=== PATIENT | female | born 1935 | race Caucasian/White ===

== ENCOUNTER → 2023-11-12 12:30 | Outpatient (REF) | payer MEDICARE, SELFPAY ==
[2023-11-12 19:40] LABS: Urine Albumin Negative (Neg - Trace); Urine Bilirubin Negative (Negative); Urine Character Slightly Cloudy (Clear); Urine Color Yellow; Urine Glucose Negative (Negative); Urine Ketone Negative (Negative); Urine Leukocyte 2+ (Negative); Urine Nitrite Positive (Negative); Urine Occult Blood Negative (Negative); Urine Specific Gravity 1.015 (<1.030); Urine Urobilinogen Negative (Neg - 1+)
[2023-11-12 19:54] LABS: Urine Red Blood Cell 0-2 /HPF (0-2)
[2023-11-12 19:55] LABS: Urine Bacteria Many (Negative); Urine White Cell 30-40 /HPF (0-5)
== END ==
LOC: OLABBH 12:30
PROVIDERS: ATTENDING PHYSICIAN Family Medicine
DX: R30.0 Dysuria (principal)
CPT/HCPCS: 81003; 81015; 87086; 87088; 87186

== ENCOUNTER 2024-04-04 07:30 | Emergency (ER) | payer MEDICARE, SELFPAY ==
[2024-04-04 07:35] VITALS: BP 196/84
[2024-04-04 07:41] VITALS: BP 196/84
[2024-04-04 07:57] LABS: % Basophils 0.4 % (0-2); % Eosinophils 1.1 % (0-6); % Immature Granulocytes 1.1 % (0-0.5); % Lymphocytes 14.4 % (20.5-51.1); % Monocytes 7.7 % (1.7-9.3); % Neutrophils 75.3 % (42.2-75.2); Absolute Basophils 0.1 10^3/uL (0-0.2); Absolute Eosinophils 0.1 10^3/uL (0-0.7); Absolute Immature Granulocytes 0.1 10^3/uL (0-0.05); Absolute Lymphocytes 1.6 10^3/uL (1.2-3.4); Absolute Monocytes 0.9 10^3/uL (0.1-0.6); Absolute Neutrophils 8.5 10^3/uL (1.4-6.5); Hematocrit 37.8 % (37.0-47.0); Hemoglobin 12.8 g/dL (12.0-16.0); Mean Corp Hgb Conc. 33.9 g/dL (33.0-37.0); Mean Corpuscular Hgb 33.3 pg (27.0-31.0); Mean Corpuscular Volume 98.4 fL (81.0-99.0); Mean Platelet Volume 9.5 fL (7.4-10.4); Nucleated Red Blood Cells % 0 %; Platelet Count 269 10^3/uL (130-400); Red Blood Cell Count 3.84 10^6/uL (4.20-5.40); Red Cell Dist. Width 11.9 % (11.5-14.5); White Blood Cell Count 11.3 10^3/uL (4.8-10.8)
[2024-04-04 08:00] VITALS: BP 194/78
--- NOTE | 2024-04-04 08:00 | ED.GENMED ---
History of Present Illness
General
Chief Complaint: Fall
Source: ambulance crew
Time Seen by Provider: 04/04/24 07:36
History of Present Illness
History of Present Illness:
88-year-old female with past medical history of Parkinson's, dementia, hypertension/hyperlipidemia presenting to the emergency department for evaluation with EMS after she was at her memory care unit and seen at 5 AM in her usual state of health,
checked on at 7 AM and was found to be on the ground. Patient with obvious left-sided head/facial trauma. EMS placed patient in a collar. Patient is unable to give any history which is baseline for her. She is without any specific complaints at
this time.
Past History
Past History
ED Past Medical History: HTN, Hypercholesterolemia and Other (Parkinson's/dementia)
ED Past Surgical History: None
Social History
Tobacco: Non-smoker
Alcohol: None
Drug: None
Personal:
Living: skilled nursing
Review of Systems
Review of Systems
All Other Systems: ROS reviewed and negative except as documented in HPI and ROS
Phy Exam
Physical Exam
Physical Exam:
GENERAL: Alert , in no apparent distress
Head: Left-sided parietal scalp contusion extending into the left periorbital space. No breaks in the skin
EYE: Left periorbital ecchymosis and edema, pupils 4 mm bilateral, pupils equal and reactive
NECK: Supple, cervical collar in place
ENT: mmm.
CARDIAC: Regular rate and rhythm .
LUNGS: Clear breath sounds bilaterally, no acute respiratory distress, no wheezes/rales/rhonchi, mild tenderness over the sternum and right anterior chest wall but no focal bony tenderness or palpable step-offs
ABDOMEN: Soft, without focal tenderness, no r/g, no cvat
NEUROLOGICAL: Alert and only oriented to self
SKIN: Warm and dry, skin intact.
MUSCULOSKELETAL: well perfused. No sign of trauma to the bilateral upper or lower extremity
PSYCH: Normal and appropriate interaction.
Scores
Heart Failure Risk
Heart Failure Risk Score: Not Applicable
Heart Score for Chest Pain Patients
STEMI patient?: Not applicable
Withdrawal Assessment of Alcohol
Withdrawal Assessment Completed?: Not applicable
Course
Orders/Labs/Results
Orders:
Orders
04/04/24 07:38
Electrocardiogram (*1) Urgent
Reason for Study: Other
Other Reason for Exam: fall
EKG- Treatment ONCE
04/04/24 07:40
Complete Blood Count/With Diff Urgent
Comprehensive Metabolic Panel Urgent
04/04/24 07:53
CT Cervical Spine W/o Iv Contr Urgent
Comment:
Reason For Exam: unwitness fall, left sided facial trauma
CT Facial Bones W/o Iv Contras Urgent
Comment:
Reason For Exam: unwitness fall, left sided facial trauma
CT Head W/o Iv Contrast Urgent
Comment:
Reason For Exam: unwitness fall, left sided facial trauma
CR Chest - 2 Views Urgent
Comment:
Reason For Exam: fall, sternal/right anterior chest pain
Abnormal Lab Results
04/04/24
07:40
WBC 11.3 H 10^3/uL
(4.8-10.8)
RBC 3.84 L 10^6/uL
(4.20-5.40)
MCH 33.3 H pg
(27.0-31.0)
Abs Immat Gran (auto) 0.1 H 10^3/uL
(0-0.05)
Absolute Neuts (auto) 8.5 H 10^3/uL
(1.4-6.5)
Absolute Monos (auto) 0.9 H 10^3/uL
(0.1-0.6)
Immature Gran % 1.1 H %
(0-0.5)
Neutrophils % 75.3 H %
(42.2-75.2)
Lymphocytes % 14.4 L %
(20.5-51.1)
BUN 21 H mg/dl
(7-17)
Glucose 102 H mg/dl
(70-99)
04/04/24 07:40
04/04/24 07:40
Vital Signs
Initial and Last Documented VS:
Initial Vital Signs
Pulse Resp BP Pulse Ox
68 21 196/84 96
04/04/24 07:35 04/04/24 07:35 04/04/24 07:35 04/04/24 07:35
Last Documented Vital Signs
Temp Pulse Resp BP Pulse Ox
97.8 F 77 18 182/88 99
04/04/24 07:41 04/04/24 12:00 04/04/24 12:00 04/04/24 12:00 04/04/24 12:00
MDM/Problems Addressed
Differential Diagnosis Includes:
Unwitnessed fall, syncope, intracranial bleeding, facial contusion/fracture, cervical spine injury
MDM/Problems Addressed:
88-year-old female presenting to the emergency department for evaluation following a suspect accidental fall resulting in left-sided facial trauma. Left-sided facial/scalp contusion on exam. Patient also with mild tenderness over the sternum and
right anterior chest wall. She is otherwise in no acute distress, smiling and pleasant. CT of the head, C-spine and facial bones ordered. Chest x-ray ordered. Patient otherwise resting comfortably and in no acute distress.
*Radiology
Radiology exam reviewed: radiology read reviewed
*Pulse Oximetry
Patient hypoxic: no
*EKG
Interpreted by ED Provider?: Yes
Comparison EKG: no comparison EKG present
Heart Rate: 68
Rate: normal
Rhythm: sinus
Ischemia: no ischemia
*Supervisor Wet Pour Interpretation
Rate: normal
Rhythm: sinus
*Critical Care Note
Total Time (30-74mins, 75-104mins- exclusive of procedures): Not Applicable
Patient Management
Escalation/DeEscalation of care consider admission/obs:
Patient CT scan without any significant acute emergent pathologies. At this time patient is medically cleared and stable to be discharged back to her skilled nursing facility. Reports from her radiology studies were provided back to the skilled nursing.
ED Attending Note
-
Portions of this chart may have been created with voice recognition software.� Occasional wrong word or��sound alike� substitutions may have occurred due to the inherent limitations of voice recognition software.
Discharge Plan
Departure
Patient Disposition: Long-Term/SNF
Date of Disposition: 04/04/24
Time of Disposition: :42
Patient with high blood pressure during this ER visit?: Yes
Discharge Problem:
Contusion of face, Accidental fall
Instructions: Contusion (DC)
Referrals:
UNKNOWN - PT DOES,NOT KNOW [Family Provider] -
Interventions
Interventions:
*Risk Screen - Suicide Last Done: 04/04/24 07:32
*General Assessment Last Done: 04/04/24 07:32
*Neglect/Abuse Screening Last Done: 04/04/24 07:32
ED- Fall Risk Assessment Last Done: 04/04/24 12:00
*ED COVID-19 Vaccine History Last Done: 04/04/24 07:32
*Nursing Disposition Last Done: 04/04/24 12:00
ED-Musculoskeletal Assessment Last Done: 04/04/24 07:32
ED- Neurological Assessment Last Done: 04/04/24 07:32
ED-Skin Assessment Last Done: 04/04/24 07:32
Discharge Date and Time
Discharge Date/Time: 04/04/24 12:02
Print Language: CITIZEN OF [place]
[2024-04-04 08:04] LABS: ALT (SGPT) 17 U/L (0-35); AST (SGOT) 22 U/L (14-36); Albumin 3.9 g/dl (3.5-5.0); Alkaline Phosphatase 70 U/L (38-126); Blood Urea Nitrogen 21 mg/dl (7-17); Calcium 9.4 mg/dl (8.4-10.2); Carbon Dioxide 27 mmol/L (22-30); Chloride 106 mmol/L (98-107); Glucose 102 mg/dl (70-99); Potassium 4.7 mmol/L (3.5-5.1); Sodium 140 mmol/L (135-145); Total Bilirubin 0.7 mg/dl (0.2-1.3); Total Protein 6.3 g/dl (6.3-8.2); eGFR > 60.00
[2024-04-04 12:00] VITALS: BP 182/88
== END 2024-04-04 12:02 ==
LOC: EMR 07:30
PROVIDERS: Physician Assistant Medical; EMERGENCY PHYSICIAN Emergency Medicine
DX: S00.03XA Contusion of scalp, initial encounter (principal); W19.XXXA Unspecified fall, initial encounter; E78.00 Pure hypercholesterolemia, unspecified; F02.80 Dementia in other diseases classified elsewhere, unspecified severity, without behavioral disturbance, psychotic disturbance, mood disturbance, and anxiety; G20.A1 Parkinson's disease without dyskinesia, without mention of fluctuations; I10 Essential (primary) hypertension
CPT/HCPCS: 99284; 70450; 70486; 71046; 72125; 80053; 85025; 93005

== ENCOUNTER 2024-08-01 19:57 | Inpatient (IN) | payer MEDICARE, OTHER, SELFPAY ==
[2024-08-01] VITALS (8 sets, daily range): BP systolic 126–171; BP diastolic 56–139
[2024-08-01 18:12] LABS: % Basophils 0.3 % (0-2); % Eosinophils 0.5 % (0-6); % Immature Granulocytes 0.5 % (0-0.5); % Lymphocytes 11.8 % (20.5-51.1); % Monocytes 13.7 % (1.7-9.3); % Neutrophils 73.2 % (42.2-75.2); Absolute Eosinophils 0.1 10^3/uL (0-0.7); Absolute Immature Granulocytes 0.1 10^3/uL (0-0.05); Absolute Lymphocytes 1.2 10^3/uL (1.2-3.4); Absolute Monocytes 1.4 10^3/uL (0.1-0.6); Absolute Neutrophils 7.3 10^3/uL (1.4-6.5); Hematocrit 41.2 % (37.0-47.0); Hemoglobin 13.7 g/dL (12.0-16.0); Mean Corp Hgb Conc. 33.3 g/dL (33.0-37.0); Mean Corpuscular Hgb 33.4 pg (27.0-31.0); Mean Corpuscular Volume 100.5 fL (81.0-99.0); Nucleated Red Blood Cells % 0 %; Platelet Count 250 10^3/uL (130-400); Red Cell Dist. Width 12.2 % (11.5-14.5); Urine Albumin Trace (Neg - Trace); Urine Bilirubin Negative (Negative); Urine Character Very Cloudy (Clear); Urine Color Yellow; Urine Glucose Negative (Negative); Urine Ketone Negative (Negative); Urine Leukocyte 2+ (Negative); Urine Nitrite Negative (Negative); Urine Occult Blood Trace (Negative); Urine Specific Gravity 1.015 (<1.030); Urine Urobilinogen 1+ (Neg - 1+); White Blood Cell Count 9.9 10^3/uL (4.8-10.8)
[2024-08-01 18:20] LABS: ALT (SGPT) 18 U/L (0-35); AST (SGOT) 25 U/L (14-36); Albumin 4.1 g/dl (3.5-5.0); Alkaline Phosphatase 83 U/L (38-126); Blood Urea Nitrogen 21 mg/dl (7-17); COVID-19 Antigen Positive (Negative); Calcium 9.1 mg/dl (8.4-10.2); Carbon Dioxide 23 mmol/L (22-30); Chloride 100 mmol/L (98-107); Glucose 143 mg/dl (70-99); Potassium 4.2 mmol/L (3.5-5.1); Sodium 134 mmol/L (135-145); Total Bilirubin 0.9 mg/dl (0.2-1.3); eGFR > 60.00
[2024-08-01 18:26] LABS: Urine Bacteria Many (Negative); Urine Hyaline Cast 0-2 /LPF (0-2); Urine Mucus Few; Urine Red Blood Cell 0-2 /HPF (0-2); Urine Squamous Cell 0-2 /LPF (Few); Urine White Cell 26-30 /HPF (0-5)
--- NOTE | 2024-08-01 18:41 | ED.GENMED ---
History of Present Illness
General
Chief Complaint: Change in Mental Status
Source: patient
Exam Limitations: altered mental status
Time Seen by Provider: 08/01/24 17:01
Nursing documentation reviewed up to this point in time: agreed with
History of Present Illness
History of Present Illness:
Patient with history of dementia presents to ED from [facility] secondary to depressed mental status and increased confusion. Upon arrival, patient is somnolent but easily arousable and offers no additional information. Of note, patient is
found to be hypoxic on arrival, requiring supplemental oxygen. Patient does not have history of oxygen dependency.
Past History
Past History
ED Past Medical History: HTN, Hypercholesterolemia and Other (Parkinson's/dementia)
ED Past Surgical History: None
Social History
Tobacco: Non-smoker
Alcohol: None
Drug: None
Personal:
Living: [facility]
Review of Systems
Review of Systems
Allergies reviewed?: Yes
Unable to obtain full review of systems at this time due to: dementia
All Other Systems: Not applicable
Phy Exam
Physical Exam
Physical Exam:
Physical Exam
General: no apparent distress, not acutely ill. afebrile
Head: nc/at. eomi
Neck: supple. normal range of motion.
Heart: s1/s2 regular rate and rhythm, no murmur. equal radial pulses.
Lungs: no acute respiratory distress. diminished breath sounds bilaterally
Abdomen: normal bowel sounds. not tender. n
Neuro: alert and oriented x 1. no focal neurological deficits
Skin: no rash
Extremities: no edema. no calf tenderness.
Sepsis
Sepsis Screening
Sepsis Assessment: Sepsis Ruled Out
Sepsis Screen
Sepsis Screen: Sepsis Ruled Out
Date: 08/01/24
Time: 23:16
Course
Orders/Labs/Results
Orders:
Orders
01/12/25 Dinner
Regular
At Your Request: Non-Participating
Does patient need a safe tray?: No
08/01/24 17:20
CT Head W/o Iv Contrast Urgent
Comment:
Reason For Exam: mental status change
08/01/24 17:59
COVID-19 Antigen Urgent
Source: Nasal Swab
Complete Blood Count/With Diff Urgent
Comprehensive Metabolic Panel Urgent
Urinalysis Reflex To Culture Urgent
Date Specimen was Collected: 08/01/24
Time Specimen was Collected: 17:12
Urine Microscopic Reflex Cult Urgent
Urine Culture Urgent
BLAIRE Source: U
Specimen Description:
Date Specimen was Collected: 08/01/24
Time Specimen was Collected: 17:12
08/01/24 18:42
CefTRIAXone [Rocephin] 1,000 mg IV NOW STA
Dexamethasone Sod Phosphate [Decadron] 6 mg IV NOW STA
08/01/24 19:02
Sterile Water [Sterile Water For Injection] 10 ml .ROUTE .STK-MED ONE
08/01/24 19:14
Admit/Transfer Patient As Directed
Co-Sign Provider:
Level of Care: Inpatient admission
Assign to:: Medical/Surgical
Physician / Group: hospitalist
Diagnosis: COVID 19 infection, UTI
Reason for Hospitalization: hypoxia
Expected length of stay greater than two midnights?: Yes
ELOS- Estimated Length of Stay in days: 2
I certify the patient meets the requirements for IP care: Yes
PRN Pain Medication Management As Directed
May give lesser potent ordered pain med per pt: Yes
preference::
Protocol:: Medication orders for pain may be administered in a
manner that supports deferring to patient preference
when the pt is:
- Requesting an ordered lesser potent pain medication.
Least to most potent pain medications are defined
as: acetaminophen < NSAID < tramadol < opioids
(morphine, oxycodone, hydromorphone).
- Requesting a lesser dose of the same medication IF
ORDERED.
- Requesting a less intrusive route of administration
if both routes are prescribed by the provider (PO <
IV).
08/01/24 19:16
Code Status As Directed
Resuscitation Status: Do not resuscitate
Reached after discussion with pt or family/Healthcare POA: Yes
DNR Bracelet Application ONCE
08/01/24 20:16
Acetaminophen [Tylenol] 650 mg PO Q4HPRN PRN
Enoxaparin Sodium [Lovenox] 40 mg SC DAILY@1999
Guaifenesin Solution [Robitussin] 200 mg PO Q4HPRN PRN
Lorazepam [Ativan] 0.5 mg PO Q8HPRN PRN
Ondansetron Injectable [Zofran] 4 mg IV Q6HPRN PRN
Risperidone [Risperdal] 0.25 mg PO BID
08/01/24 20:16
Activity As Directed
Activity Level: Out of Bed-Early Mobility
Intake/ Output As Directed
Frequency: Per unit guidelines
Precautions As Directed
Type of Precautions: Novel Respiratory
Vital Signs As Directed
Frequency: Per unit guidelines
Weight As Directed
Frequency: Once
Comment: on admission
CR Chest - 2 Views Routine
Comment:
Reason For Exam: hypoxia
O2 Therapy [RESP] Routine
Nasal Cannula Liter Flow: 2 LPM
Titrate/Wean O2 to maintain O2 sat greater than (%): 93
Special Instructions: nasal cannula oxygen to maintain O2 saturation as noted above. then wean as tolerated.
Do NOT humidify nasal cannula O2
Pulse Ox/cont/shift [RESP] Routine
Quantity: 1
Special Instructions: continuous pulse oximetry
Pt Eval And Treat Routine
Activity Level: With Assistance
DX Deep Vein Thrombosis Video Routine
08/02/24 06:00
Basic Metabolic Panel IN AM
Magnesium IN AM
08/02/24 08:00
Dexamethasone Sod Phosphate [Decadron] 6 mg IV DAILY
Lisinopril [Zestril] 40 mg PO DAILY
08/02/24 20:00
CefTRIAXone [Rocephin] 1,000 mg IV Q24H
Abnormal Lab Results
08/01/24
17:59
RBC 4.10 L 10^6/uL
(4.20-5.40)
MCV 100.5 H fL
(81.0-99.0)
MCH 33.4 H pg
(27.0-31.0)
Abs Immat Gran (auto) 0.1 H 10^3/uL
(0-0.05)
Absolute Neuts (auto) 7.3 H 10^3/uL
(1.4-6.5)
Absolute Monos (auto) 1.4 H 10^3/uL
(0.1-0.6)
Lymphocytes % 11.8 L %
(20.5-51.1)
Monocytes % 13.7 H %
(1.7-9.3)
Sodium 134 L mmol/L
(135-145)
BUN 21 H mg/dl
(7-17)
Glucose 143 H mg/dl
(70-99)
Ur Occult Blood Reflex Trace A
(Negative)
Leukocyte Esterase Rfl 2+ A
(Negative)
Urine WBC (Reflex) 26-30 A /HPF
(0-5)
Urine Bacteria (Reflex) Many A
(Negative)
SARS-CoV-2 Antigen Positive A
(Negative)
08/01/24 17:59
08/01/24 17:59
Vital Signs
Initial and Last Documented VS:
Initial Vital Signs
Temp
99.3 F
08/01/24 16:55
Last Documented Vital Signs
Temp Pulse Resp BP Pulse Ox
98 F 68 16 137/101 93
08/01/24 19:38 08/01/24 21:04 08/01/24 21:04 08/01/24 18:00 08/01/24 21:04
MDM/Problems Addressed
MDM/Problems Addressed:
Patient is presenting mental status change, likely secondary to UTI along with COVID-19. Patient not requiring supplemental oxygen via nasal cannula. As such, patient was given dose of Decadron along with IV antibiotics.
*Critical Care Note
Total Time (30-74mins, 75-104mins- exclusive of procedures): Not Applicable
ED Attending Note
-
Portions of this chart may have been created with voice recognition software.� Occasional wrong word or��sound alike� substitutions may have occurred due to the inherent limitations of voice recognition software.
Discharge Plan
Departure
Patient Disposition: Admit
Date of Disposition: 08/01/24
Time of Disposition: 18:43
Admit to: Telemetry
Presentation/result/management discussed w/ accepting MD/DO: Hospitalist
Discharge Problem:
Acute UTI, COVID-19
Interventions
Interventions:
*Risk Screen - Suicide Last Done: 08/01/24 17:07
*General Assessment Last Done: 08/01/24 17:07
*Neglect/Abuse Screening Last Done: 08/01/24 17:07
ED- Fall Risk Assessment Last Done: 08/01/24 17:08
*ED COVID-19 Vaccine History Last Done: 08/01/24 17:06
ED- Pulmonary Assessment Last Done: 08/01/24 19:40
ED-Psychological Assessment Last Done: 08/01/24 17:08
ED- Neurological Assessment Last Done: 08/01/24 19:40
ED- Cardiac Assessment Last Done: 08/01/24 19:40
--- NOTE | 2024-08-01 18:57 | HPS.HSE ---
Family Physician
-
Family Physician: Marquis Guerrero
Chief Complaint
-
Mental status change
History of Present Illness
This is an 89-year-old female with past medical history significant for hypertension, hyperlipidemia, dementia and Parkinson's disease who lives at a dementia unit presenting to the hospital for altered mental status.
Patient unable to provide any history. She is arousable and alert, oriented to person but otherwise provides no additional history. She was transferred from the dementia unit for changes in mental status. She is usually interactive and able to
feed self. However she has had decreased appetite and lethargy over the last few days. No report of cough or shortness of breath. No falls. No report of fevers or chills.
In the emergency department she had a low-grade temp of 99.3, blood pressure was 130/100, pulse 100, she was placed on 2 L of oxygen and satting 92 to 96%. COVID test was positive, urinalysis was also positive. CBC was unremarkable. Electrolytes
BUN/creatinine were all within normal limits. LFTs within normal limits. CT of the head shows no acute abnormality.
Medical History
Past Medical History
Past Medical History: Reports Dementia, HTN, Hypercholesterolemia and Other (parkinson)
Past Surgical History: Reports None
Social History
Tobacco: Non-smoker
Alcohol: None
Drug: None
Personal:
Living: Jail
Employment: Retired
Family History
Family History: Not pertinent
Allergies / Home Medications
Allergies reflects when Allergies were last updated in [facility].
Home Medications with original date entered in [facility]
Allergy/Medication List:
Allergies
Allergy/AdvReac Type Severity Reaction Status Date / Time
No Known Allergies Allergy Unverified 04/04/24 07:36
Home Medications
acetaminophen 325 mg tablet 650 mg PO Q4H PRN mild pain/fever 08/01/24
lisinopril 40 mg tablet 40 mg PO DAILY 08/01/24
lorazepam 0.5 mg tablet 0.5 mg PO Q8HPRN PRN anxiety 08/01/24
lovastatin 20 mg tablet 20 mg PO HS 08/01/24
risperidone 0.25 mg tablet 0.25 mg PO BID 08/01/24
Review of Systems
-
Unable to obtain full review of systems at this time due to: Patient Non-verbal
Physical Exam
Vital Signs
Vital Signs
Temp Pulse Resp BP Pulse Ox
99.3 F 69 21 137/101 96
08/01/24 16:55 08/01/24 18:45 08/01/24 18:45 08/01/24 18:00 08/01/24 18:30
Physical Exam
General: Well Developed, Well Nourished, No Apparent Distress and Comfortable
HEENT: NormoCephalic, Anicteric, Moist mucous membranes and Atraumatic
Respiratory: Clear
Cardiac: S1/S2 and Regular Rhythm
Breast: Deferred by me
GI: Soft, Non Tender, Non Distended and Normal Bowel Sounds
Rectal: Deferred by Provider
Genito-urinary: Deferred by me
Musculoskeletal: No Clubbing, No Cyanosis, Edema, Left Lower Extremity and Edema, Right Lower Extremity
Skin: Warm
Neuro: Alert and Oriented (oriented to person only)
Hematologic/Lymphatic: No Lymphadenopathy
Psych: Calm
Laboratory Results
-
08/01/24 17:59
08/01/24 17:59
Laboratory Results
Total Bilirubin 0.9 mg/dl (0.2-1.3) 08/01/24 17:59
AST 25 U/L (14-36) 08/01/24 17:59
ALT 18 U/L (0-35) 08/01/24 17:59
Alkaline Phosphatase 83 U/L (38-126) 08/01/24 17:59
Data Reviewed
-
CT Scan: Report Reviewed by me
Lab Data: Labs Reviewed by me
Old Records: Reviewed
Impression/Plan
-
IMPRESSION:
89-year-old female with past medical history of Parkinson's dementia and hypertension presenting to the emergency department with altered mental status and found to have urinary tract infection with a positive COVID test with mild hypoxia.
PLAN:
1. UTI - + u/a, afebrile and without leukocytosis. However has increased lethargy and less po intake suspicious for delirium. Prior h/o UTI with sensitive E.coli
- admit to med/surg observation
- urine cultures
- ceftriaxone 1g iv daily
- gentle hydration overnight
2. COVID - hypoxia requiring 2 liters, no wheezes or crackles on exam.
- dexamethasone 6mg daily
- paxlovid
3. Dementia
- continue patients risperdal hs, prn lorazepam
4. HTN
- continue lisinopril
DVT PPX - lovenox sq
Code status - DNR
[2024-08-01] MEDS: DECADRON 6 MG IV (19:28)
[2024-08-01] MEDS: ROCEPHIN 1000 MG IV (19:30)
[2024-08-01] MEDS: LOVENOX 40 MG SC (23:04)
[2024-08-01] MEDS: RISPERDAL 0.25 MG PO (23:04)
[2024-08-01] MEDS: PAXLOVID 150-100 MG DOSE PACK 1 DOSE PO (23:05)
[2024-08-02] MEDS: DECADRON 6 MG IV (09:16)
[2024-08-02] MEDS: PAXLOVID 150-100 MG DOSE PACK 1 DOSE PO ×2 (09:20→20:36)
[2024-08-02 09:21] VITALS: BP 153/78
[2024-08-02] MEDS: ZESTRIL 40 MG PO (09:21)
[2024-08-02] MEDS: RISPERDAL 0.25 MG PO ×2 (09:21→20:35)
[2024-08-02 10:06] LABS: Blood Urea Nitrogen 23 mg/dl (7-17); Calcium 8.7 mg/dl (8.4-10.2); Carbon Dioxide 25 mmol/L (22-30); Chloride 103 mmol/L (98-107); Estimated Creatinine Clearance 48 ml/min; Glucose 135 mg/dl (70-99); Magnesium 2.4 mg/dl (1.6-2.3); Potassium 4.7 mmol/L (3.5-5.1); Sodium 137 mmol/L (135-145); eGFR > 60.00
[2024-08-02 13:14] VITALS: BP 157/80; PULSE 68; O2SAT 91
[2024-08-02 13:35] VITALS: BP 154/84; BMI 26.2
--- NOTE | 2024-08-02 13:40 | W.PN.HOSP.TC ---
Today's Communication/Plan
-
Assessment / Plan
Assessment / Plan
NAD
Scleral Anicteric
MMM
No JVD
CTABL
RRR, S1/S2
Soft, NT, ND, BS+
Warm, Dry
AAOx3
Calm
Acute hypoxemic respiratory failure but lowest documented O2 sat of 89%, secondary to COVID
-Wean O2 as tolerated
-Continue Paxlovid and dexamethasone
-Isolation precautions
UTI
Continue Rocephin
Follow-up urine culture
Dementia
Continue Risperdal and as needed lorazepam
Hypertension continue lisinopril
Anticipated Discharge: 24 - 48 hours
Subjective/Interval History
-
Date of Service: August 02, 2024
Seen and examined. No acute overnight events. On room air.
When I saw her she was eating her breakfast herself
Objective Data
-
Labs:
Laboratory Results
08/02/24 08/02/24
05:54 09:38
Sodium Cancelled 137
Potassium Cancelled 4.7
Chloride Cancelled 103
Carbon Dioxide Cancelled 25
BUN Cancelled 23 H
Creatinine Cancelled 0.8
Glucose Cancelled 135 H
Calcium Cancelled 8.7
Vital Signs:
Vital Signs
Temp Pulse Resp BP Pulse Ox
98.9 F 57 20 153/78 94
08/02/24 09:21 08/02/24 09:21 08/02/24 09:21 08/02/24 09:21 08/02/24 09:21
[2024-08-02 13:55] VITALS: BP 154/84; BMI 26.2
--- NOTE | 2024-08-02 14:26 | CM ---
CM spoke with [facility] care
Pt is alert to person and no behaviors
Pt is independent with ambulation, no ADs
Staff assist with personal care, pt follows commands and feeds self
No O2 at baseline
PCP- Marquis Guerrero
Rx- [facility]
Pt COVID+ and 2 person assist per PT eval, SNF recs
[facility] typically able to accomodate 2 person assisr with [facility]
Nursing will look into the staffing to ensure that have appropriate capability for care
Call with dtr/Nora Gerardo POA [phone]
She is in agreement with SNF backup should [facility] not be able to accept pt back on dc
PASRR completed and referrals sent via [facility]
Discharge Disposition- return to [facility] with [facility] vs SNF
--- NOTE | 2024-08-02 14:51 | PTCARENOTE ---
pt transferred from [facility] to this afternoon. pt is covid positive. aaox2 and from memory care facility. pt with strong harsh cough, and remains on a bed alarm due to impulsivity.
[2024-08-02 15:00] VITALS: BP 154/84
[2024-08-02] MEDS: STERILE WATER FOR INJECTION 10 ML IV (20:35)
[2024-08-02] MEDS: ROCEPHIN 1000 MG IV (20:35)
[2024-08-02] MEDS: LOVENOX 40 MG SC (20:35)
[2024-08-02 23:42] VITALS: BP 146/83
[2024-08-03] MEDS: ATIVAN 0.5 MG PO (01:40)
--- NOTE | 2024-08-03 01:57 | PTCARENOTE ---
Patient remains AAOx1 she is awake and slightly restless, remains on Medsitter, PRN Ativan given to help patient relax and try to sleep. No cough noted. pills were crushed in applesauce as she was spitting them back out.
[2024-08-03 07:46] VITALS: BP 152/64
--- NOTE | 2024-08-03 08:10 | W.PN.HOSP.TC ---
Today's Communication/Plan
-
Begin discharge planning
Physical therapy recommended SNF
Will have physical therapy reevaluate
Assessment / Plan
Assessment / Plan
NAD
Scleral Anicteric
MMM
No JVD
CTABL
RRR, S1/S2
Soft, NT, ND, BS+
Warm, Dry
AA
Calm
Acute hypoxemic respiratory failure but lowest documented O2 sat of 89%, secondary to COVID
-On room air
-Continue Paxlovid and dexamethasone
-Isolation precautions
UTI�E. coli
Continue Rocephin today is day 3 of 3
Follow-up urine culture
Toxic metabolic encephalopathy likely secondary to viral/bacterial infection
-Improving at baseline
Dementia
Continue Risperdal and as needed lorazepam
Hypertension
-Likely augmented by steroid use
-continue lisinopril
Anticipated Discharge: Within 24 hours
Subjective/Interval History
-
Date of Service: August 03, 2024
Seen and examined.
Appears to be back at baseline. Able to feed himself.
Objective Data
-
Vital Signs:
Vital Signs
Temp Pulse Resp BP Pulse Ox
97.3 F 69 16 152/64 92
08/03/24 07:46 08/03/24 07:46 08/03/24 07:46 08/03/24 07:46 08/03/24 07:46
I&O
08/02/24 08/03/24 08/04/24
06:59 06:59 06:59
Intake Total 120 / 120
Balance 120 / 120
[2024-08-03] MEDS: RISPERDAL 0.25 MG PO ×2 (09:15→22:13)
[2024-08-03] MEDS: PAXLOVID 150-100 MG DOSE PACK 1 DOSE PO ×2 (09:15→22:13)
[2024-08-03] MEDS: ZESTRIL 40 MG PO (09:16)
[2024-08-03] MEDS: DECADRON 6 MG IV (09:16)
--- NOTE | 2024-08-03 11:57 | CM ---
Called Lois MCNEILL at [facility]
PT rec SNF - Lois stated patient funcitonal status was independent without a device at [facility] does not wish to accept at this time.
Will have PT re-evaluate patient
Called cl RODRIGUEZ & updated - SNF referrals in careport
PLAN: SNF vs. return to [facility]
[2024-08-03 13:29] VITALS: BP 142/81; PULSE 61; O2SAT 93
[2024-08-03 15:48] VITALS: BP 152/78
[2024-08-03] MEDS: ROCEPHIN 1000 MG IV (22:12)
[2024-08-03] MEDS: LOVENOX 40 MG SC (22:13)
[2024-08-03] MEDS: STERILE WATER FOR INJECTION 10 ML IV (22:13)
[2024-08-03 23:16] VITALS: BP 158/87
[2024-08-04] VITALS (8 sets, daily range): BP systolic 140–206; BP diastolic 80–101
[2024-08-04] MEDS: DECADRON 6 MG IV (08:36)
[2024-08-04] MEDS: PAXLOVID 150-100 MG DOSE PACK 1 DOSE PO (08:37)
[2024-08-04] MEDS: ZESTRIL 40 MG PO (08:37)
[2024-08-04] MEDS: RISPERDAL 0.25 MG PO ×2 (08:37→23:28)
--- NOTE | 2024-08-04 12:16 | PN.CDI ---
CDI
- -
CDI:
Physician Documentation Request
Admit Date: 08/01/24 19:57
Dear Doctor Edwin,
Patient admitted with covid.
Clinical Indicators:
Documentation in the record on 08/03 includes the diagnosis of respiratory failure. The patient's respiratory clinical indicators were the following:
08/03 Hospitalist PN: 'Acute hypoxemic respiratory failure but lowest documented O2 sat of 89%, secondary to COVID
-On room air'
Selected Entries
08/01/24
17:12 08/01/24
17:15 08/01/24
17:45
SaO2 89 90 92
08/01/24
21:04 08/01/24
23:13 08/02/24
07:36
Nasal Cannula flow liters per minute 4 4 2
Additional information for Respiratory Failure:
Recognized criteria for Respiratory Failure (Source: [facility] May 2013)
ABGs: (1 or more) Symptoms Please indicate type if known
1. p)2 <60 or RA SPO2 <91% on RA 1. Tachypnea, SOB, dyspnea Hypoxic
2. pCO2 50 and pH <7.35 2. Use of accessory muscles Hypercapnic
3. pO2 decrease of pCO2 increase by 3. Pallor or cyanosis Hypoxic and Hypercapnic
10 mmHg from baseline if known 4. Anxiety or restlessness Unable to determine
5. Unable to speak in full sentences
Supplemental O2 of > 40% (5LPM) Intubation is not required
Based on the above information and the recognized standard for respiratory failure could you please verify this diagnoses is still accurate and reflective of the patient�s condition to ensure quality of the medical record.
Please clarify in the Progress Notes:
�Respiratory failure is/was present and is a clinical diagnosis based on (please include this additional support in the medical record)
�After study respiratory failure has been ruled out
�Other
�Unable to determine
Use of terms such as suspected, likely, concern for, or probable (associated with a specific diagnosis that is being evaluated, monitored, or treated as if it exists) are acceptable and can be coded in the inpatient setting, when documented at the
time of discharge.
Thank you,
Clare Donnelly RN, BSN
CDI Specialist
Available via [place] text
Please use your independent medical judgment in providing your response.
[2024-08-04] MEDS: ATIVAN 0.5 MG PO ×2 (12:35→22:52)
--- NOTE | 2024-08-04 13:34 | W.PN.HOSP.TC ---
Today's Communication/Plan
-
Assessment / Plan
Assessment / Plan
NAD
Scleral Anicteric
MMM
No JVD
CTABL
RRR, S1/S2
Soft, NT, ND, BS+
Warm, Dry
AA
Calm
Acute hypoxemic respiratory failure but lowest documented O2 sat of 89%, secondary to COVID
-On room air
-Continue Paxlovid. Stop Dex to prevent steroid induced delirium in a patient with already dementia
-Isolation precautions
UTI�E. coli
Continue Rocephin today is day 3 of 3
Follow-up urine culture
Toxic metabolic encephalopathy likely secondary to viral/bacterial infection
-Improving at baseline
Dementia
Continue Risperdal and as needed lorazepam
Hypertension
-Likely augmented by steroid use
-continue lisinopril
PT Rec SNF vs Home PT
Anticipated Discharge: Within 24 hours
Subjective/Interval History
-
Date of Service: August 04, 2024
seen an dexamined. no new compalintgs. no acute overnight events
Objective Data
-
Vital Signs:
Vital Signs
Temp Pulse Resp BP Pulse Ox
97.9 F 60 18 140/90 94
08/04/24 07:20 08/04/24 08:37 08/04/24 07:20 08/04/24 08:49 08/04/24 10:35
I&O
08/03/24 08/04/24 08/05/24
06:59 06:59 06:59
Intake Total 120 / 120 950 / 950
Balance 120 / 120 950 / 950
--- NOTE | 2024-08-04 16:06 | PTCARENOTE ---
pt bp automatic bp 180/95,72. denies chest pain. no s/s of distress noted. manual bp 150/80. an sampson made aware.
--- NOTE | 2024-08-04 16:21 | CM ---
Referrals in [facility]
Patient on medsitter
Spoke with Pao bonilla at [facility]
will call CM tomorrow if they can accept back to [facility].
PT eval yesterday SNF vs. home PT
PLAN: SNF vs. home PT - will await PT re-eval tomorrow.
[2024-08-04] MEDS: PAXLOVID 150-100 MG DOSE PACK PO ×2 (21:12→21:56)
[2024-08-04] MEDS: ROCEPHIN 1000 MG IV (21:12)
[2024-08-04] MEDS: LOVENOX 40 MG SC (21:12)
[2024-08-04] MEDS: RISPERDAL PO ×2 (21:12→21:57)
[2024-08-04] MEDS: STERILE WATER FOR INJECTION 10 ML IV (21:15)
[2024-08-04] MEDS: SENOKOT-S 1 TABLET PO (23:20)
--- NOTE | 2024-08-04 23:35 | PTCARENOTE ---
Pt agitated. Refused hs meds. Vital signs obtained. BP was 200/100's. Multiple manual rechecks performed. Ativan prn given. Risperdone refused at bedtime, able to administer at this time. KAYDEN Rock made aware. No new orders at this time.
See vital signs recheck in worklist documentation.
--- NOTE | 2024-08-04 23:40 | PTCARENOTE ---
Pt with no bowel movement since admission 08/01. Adbomen round and distended. Good bowel sounds present. Pt reporting waxing waning abdominal pain. call center representative KAYDEN Rock made aware. Senna-doculaskayli ordered and administered.
[2024-08-05] VITALS (8 sets, daily range): BP systolic 90–190; BP diastolic 40–88; PULSE 64; O2SAT 94
[2024-08-05] MEDS: APRESOLINE 2.5 MG IV (01:04)
[2024-08-05] MEDS: PAXLOVID 150-100 MG DOSE PACK 1 DOSE PO ×2 (08:06→19:39)
[2024-08-05] MEDS: ZESTRIL 40 MG PO (08:08)
[2024-08-05] MEDS: RISPERDAL 0.25 MG PO ×2 (08:08→19:33)
[2024-08-05] MEDS: PROCARDIA XL (EXTENDED RELEASE) 30 MG PO (08:15)
[2024-08-05] MEDS: NSS 250 IV ×2 (11:02→12:18)
--- NOTE | 2024-08-05 11:10 | PTCARENOTE ---
pt with bp of 90/40,78. no s/s of distress noted Hadley Sanders at pt's bedside and aware. verbal order for NSS 250 Iv bolus now initiated. plan of care ongoing
--- NOTE | 2024-08-05 13:12 | W.PN.HOSP.TC ---
Addendum entered and electronically signed by Arik Pineda MD 08/05/24 16:47:
Respiratory failure
Original Note:
Today's Communication/Plan
-
Assessment / Plan
Assessment / Plan
NAD
Scleral Anicteric
MMM
No JVD
CTABL
RRR, S1/S2
Soft, NT, ND, BS+
Warm, Dry
AA
Calm
Acute hypoxemic respiratory failure but lowest documented O2 sat of 89%, secondary to COVID
-On room air
-Continue Paxlovid. Stop Dex to prevent steroid induced delirium in a patient with already dementia
-Isolation precautions
UTI�E. coli
Continue Rocephin today is day 3 of 3
Follow-up urine culture
Toxic metabolic encephalopathy likely secondary to viral/bacterial infection
-Improving at baseline
Dementia
Continue Risperdal and as needed lorazepam
Hypertension
-Likely augmented by steroid use
-continue lisinopril
-Started nifedipine
Hypotension
-After starting nifedipine and lisinopril blood pressure precipitously dropped from the 200s down to 90s over 50s. I am suspecting that this big swing is likely secondary to incorrect/inaccurate blood pressure readings as I would not suspect or
expect such a significant drop like this.
--Will avoid providing alpha 1 agonist such as midodrine as this would show us how well her autonomic system is working in order to rebound her blood pressure
-Will hold lisinopril nifedipine for now
-Will provide IV fluids
PT Rec SNF vs Home PT
Anticipated Discharge: 24 - 48 hours
Subjective/Interval History
-
Date of Service: August 05, 2024
Seen and examined. Overnight noted to have blood pressures in the 200s and received 2.5 mg of IV hydralazine. Blood pressure proved to the 150s however again this morning back into the 200s.
-Recommended to bedside nursing to provide a.m. medication of lisinopril and started nifedipine 30
Objective Data
-
Vital Signs:
Vital Signs
Temp Pulse Resp BP Pulse Ox
97.2 F 61 16 95/45 94
08/04/24 23:00 08/05/24 11:45 08/05/24 11:45 08/05/24 11:45 08/05/24 11:45
I&O
08/04/24 08/05/24 08/06/24
06:59 06:59 06:59
Intake Total 950 / 950 840 / 840
Balance 950 / 950 840 / 840
[2024-08-05] MEDS: NSS 500 IV (14:45)
--- NOTE | 2024-08-05 16:06 | CM ---
Patient chart reviewed
cont on medsitter-dementia
PT eval today SNF vs. Home PT
Called Lois MCNEILL from [facility]-[phone] & she stated they can care for the patient at [facility] if they have a walker & wheelchair. Requested CM to order & have delivered to facility before patient is
discharged to facility. - Lois Also requested [facility]
Referral entered in [facility] for [facility]
Updated daughter Nora - she will see if family member has w/c or walker
Called Maggie from [facility]-she states patient cannot get a wheelchair & a walker (one or other)
CM to follow up regarding equipment
PLAN: [facility] - only if patient has the equipment (wheelchair&walker)
[2024-08-05] MEDS: LOVENOX 40 MG SC (19:33)
[2024-08-05] MEDS: ROCEPHIN 1000 MG IV (19:34)
[2024-08-05] MEDS: STERILE WATER FOR INJECTION 10 ML IV (19:34)
[2024-08-05] MEDS: ATIVAN 0.5 MG PO (21:44)
[2024-08-06 07:20] VITALS: BP 114/62
[2024-08-06] MEDS: PAXLOVID 150-100 MG DOSE PACK 1 DOSE PO (09:03)
[2024-08-06] MEDS: TYLENOL 650 MG PO (09:04)
[2024-08-06] MEDS: ZESTRIL PO ×2 (09:04→09:55)
[2024-08-06] MEDS: RISPERDAL 0.25 MG PO (09:04)
--- NOTE | 2024-08-06 10:41 | W.PN.HOSP.TC ---
Today's Communication/Plan
-
[facility] memory care unit
More than 30 minutes spent in discharge including
Final examination of the patient
Summarizing hospital stay
Instructions for continuing care to all relevant caregivers
Preparation of discharge records, prescriptions, and referral forms
Total time spent (in minutes): 33min
Assessment / Plan
Assessment / Plan
NAD
Scleral Anicteric
MMM
No JVD
CTABL
RRR, S1/S2
Soft, NT, ND, BS+
Warm, Dry
AA
Calm
Acute hypoxemic respiratory failure but lowest documented O2 sat of 89%, secondary to COVID
-On room air
-Continue Paxlovid. Stop Dex to prevent steroid induced delirium in a patient with already dementia
-Isolation precautions
UTI�E. coli
Continue Rocephin today is day 3 of 3
Follow-up urine culture
Toxic metabolic encephalopathy likely secondary to viral/bacterial infection
-Improving at baseline
Dementia
Continue Risperdal and as needed lorazepam
Hypertension
-Likely augmented by steroid use
-continue lisinopril
-Started nifedipine
Hypotension�stop nifedipine altogether.
Plan to discharge back to memory care unit
Anticipated Discharge: Today
Subjective/Interval History
-
Date of Service: August 06, 2024
Seen and examined. No new complaints. No acute overnight events.
Eating breakfast well.
Objective Data
-
Vital Signs:
Vital Signs
Temp Pulse Resp BP Pulse Ox
97.4 F 66 16 120/61 94
08/06/24 07:20 08/06/24 09:55 08/06/24 07:20 08/06/24 09:55 08/06/24 07:20
I&O
08/05/24 08/06/24 08/07/24
06:59 06:59 06:59
Intake Total 840 / 840 1040 / 1040
Balance 840 / 840 1040 / 1040
--- NOTE | 2024-08-06 10:55 | CM ---
Addendum entered by Patricia Sanchez RN 08/06/24 12:41:
Patient to receive VN/PT through [facility].
Fax d/c instructions to: [phone]
Addendum entered by Patricia Sanchez RN 08/06/24 11:47:
Fax report to: [phone].
Original Note:
Reviewed the chart notes and spoke with the patient's daughter Nora via telephone. Reviewed IMM. Per attending, patient ready for discharge. Requested script for rolling walker. Patient's family have a wheelchair that they placed in the
patient's room at [facility]. Call placed to Lois at [facility] updating on discharge plans. Lois will call back with where to fax d/c instructions.
Plan: Discharge back to [facility].
Call report to: [phone]
Medical necessity and transport forms on chart.
--- NOTE | 2024-08-06 10:57 | W.DCSUMMARY ---
Discharge Summary
Discharge Data
Date of Admission: 08/01/24
Date of Discharge: 08/06/24
-
Pending Results: No
Hospital Course
89-year-old female with past medical history significant for hypertension, hyperlipidemia, dementia and Parkinson's disease
Presented with altered mental status with findings that were unusual for self such as unable to feed herself and decreased appetite with lethargy. Found to have COVID as she was tested positive. Started on Paxlovid steroids weaned oxygen.
Steroids were discontinued continued on Paxlovid with improvement in symptomatology. Evaluated by physical therapy recommended skilled rehab versus home PT.
Discharge Plan
-
Patient Disposition: Assisted Living
Discharge Diagnosis/Procedures: covid +
Condition: Fair
Activity Restrictions/Additional Instructions:
Presented with altered mental status with findings that were unusual for self such as unable to feed herself and decreased appetite with lethargy. Found to have COVID as she was tested positive. Started on Paxlovid steroids weaned oxygen.
Steroids were discontinued continued on Paxlovid with improvement in symptomatology. Evaluated by physical therapy recommended skilled rehab versus home PT.
Referrals:
Marquis Guerrero MD [Family Provider] -
Prescriptions:
Continued
acetaminophen 325 mg Tablet
650 mg PO Q4H PRN (Reason: mild pain/fever)
risperidone 0.25 mg Tablet
0.25 mg PO BID
lorazepam 0.5 mg Tablet
0.5 mg PO Q8HPRN PRN (Reason: anxiety)
lovastatin 20 mg Tablet
20 mg PO HS
lisinopril 40 mg Tablet
40 mg PO DAILY
Discharge Orders:
Discharge Patient (As Directed); Ordered 08/06/24
Ordered By: Arik Pineda
Discharge Date and Time
Print Language: GUATEMALAN
[2024-08-06 13:31] VITALS: BP 129/70
== END 2024-08-06 14:37 | disposition home health service (06) | DRG 177 ==
LOC: 2 NORTH 19:57
PROVIDERS: ADMITTING PHYSICIAN Internal Medicine; ATTENDING PHYSICIAN Hospitalist; EMERGENCY PHYSICIAN Emergency Medicine; FAMILY PHYSICIAN Family Medicine
DX: U07.1 COVID-19 (principal); G92.8 Other toxic encephalopathy; J96.01 Acute respiratory failure with hypoxia; N39.0 Urinary tract infection, site not specified; B96.20 Unspecified Escherichia coli [E. coli] as the cause of diseases classified elsewhere; F02.80 Dementia in other diseases classified elsewhere, unspecified severity, without behavioral disturbance, psychotic disturbance, mood disturbance, and anxiety; E78.00 Pure hypercholesterolemia, unspecified; I10 Essential (primary) hypertension; G20.A1 Parkinson's disease without dyskinesia, without mention of fluctuations; R40.0 Somnolence; I95.9 Hypotension, unspecified; Z66 Do not resuscitate
CPT/HCPCS: 70450; 71046; 80048; 80053; 81003; 81015; 83735; 85025; 87070; 87077; 87086; 87186; 87811; 93005; 97163; 97530; 99285